=== PATIENT | female | born 1990 | race American Indian/Alaskan Native ===

== ENCOUNTER 2016-10-21 13:19 | Outpatient (CLI) | payer BC, MEDICAID ==
[2016-10-21] MEDS ORDERED: LACTATED RINGERS 500 ML IV ONE (13:29)
[2016-10-21 13:53] VITALS: BP 114/66
[2016-10-21 14:55] LABS: Bilirubin,Urine NEG (Negative); Blood,Urine NEG (Negative); Ketones,Urine NEG (Negative); Leukocyte Esterase,Urine NEG (Negative); Mucus,Urine FEW /HPF; Nitrite,Urine NEG (Negative); Protein,Urine <15 mg/dL mg/dL (Negative); Urobilinogen,Urine < 2.0 mg/dL (<2.0)
== END 2016-10-21 16:05 | disposition home or self-care (01) ==
LOC: TRG 13:19
PROVIDERS: ATTEND Obstetrics & Gynecology
DX: O47.02 False labor before 37 completed weeks of gestation, second trimester (principal); Z3A.26 26 weeks gestation of pregnancy
CPT/HCPCS: 59025; 81001; 96360; J7120

== ENCOUNTER 2016-12-04 22:20 | Outpatient (CLI) | payer MEDICAID ==
[2016-12-04 23:02] VITALS: BP 114/69
[2016-12-04] MEDS ORDERED: LACTATED RINGERS 500 ML IV ONE (23:05)
[2016-12-04 23:41] LABS: Bacteria,Urine 1+ /HPF (Negative); Bilirubin,Urine NEG (Negative); Blood,Urine NEG (Negative); Ketones,Urine NEG (Negative); Leukocyte Esterase,Urine SM (Negative); Mucus,Urine 2+ /HPF; Nitrite,Urine NEG (Negative); Protein,Urine <15 mg/dL mg/dL (Negative); Urobilinogen,Urine < 2.0 mg/dL (<2.0)
[2016-12-04] MEDS ORDERED: LACTATED RINGERS 1,000 ML ONE (23:57)
--- NOTE | 2016-12-05 08:03 | Ultrasound Report ---
ULTRASOUND BIOPHYSICAL PROFILE: History: well being Technique: Transabdominal ultrasound with Doppler interrogation. 2 - breathing movements 2 - movements 2 - posture and tone 2 - Qualitative amniotic fluid volume 8 - TOTAL SCORE OF POSSIBLE 8 Heart Rate (bpm) 145
--- NOTE | 2016-12-05 08:04 | Ultrasound Report ---
ULTRASOUND OB LIMITED History: well being Technique: Transabdominal ultrasound with Doppler interrogation. Gestation: Single Position: Cephalic Amniotic Fluid: Normal PABLO = 14.7 cm Placenta: Posterior Placental Grade: 2 Heart Rate: 143 BPM Cervical length: Obscured cm (Normal > 3 cm)
== END 2016-12-05 01:55 | disposition home or self-care (01) ==
LOC: TRG 22:20
PROVIDERS: ATTEND Obstetrics & Gynecology
DX: O26.893 Other specified pregnancy related conditions, third trimester (principal); W19.XXXA Unspecified fall, initial encounter; Y93.89 Activity, other specified; Y92.89 Other specified places as the place of occurrence of the external cause; Y99.8 Other external cause status; Z3A.34 34 weeks gestation of pregnancy
CPT/HCPCS: 59025; 76815; 76819; 81001; 96360; J7120

== ENCOUNTER 2016-12-29 22:07 | Outpatient (CLI) | payer MEDICAID ==
[2016-12-29 22:22] VITALS: BP 122/70
== END 2016-12-29 23:08 | disposition home or self-care (01) ==
LOC: TRG 22:07
PROVIDERS: ATTEND Obstetrics & Gynecology
DX: Z34.93 Encounter for supervision of normal pregnancy, unspecified, third trimester (principal); Z3A.38 38 weeks gestation of pregnancy

== ENCOUNTER 2016-12-31 17:56 | Inpatient (IN) | payer MEDICAID ==
[2016-12-31] MEDS ORDERED: MINERAL OIL PO PRN (18:18)
[2016-12-31] MEDS ORDERED: SUBLIMAZE IV PRN (18:18)
[2016-12-31] MEDS ORDERED: XYLOCAINE 2% INFILTRATI ONE (18:18)
[2016-12-31] MEDS ORDERED: BRETHINE SUB-Q PRN (18:18)
[2016-12-31] MEDS ORDERED: ePHEDrine SULFATE IV PRN (18:18)
[2016-12-31] MEDS ORDERED: BRETHINE IVP PRN (18:18)
[2016-12-31] MEDS ORDERED: POLYCILLIN/NS 2 GM/100 ML 2 GM/100 ML BAG IV ONE (18:18)
--- NOTE | 2016-12-31 18:26 | History and Physical Report ---
History of Present Illness Date of examination: 12/31/16 Date of admission: 12/31/2016 Chief complaint: Sent from office 5-6cm History of present illness: 26 y/o now 36.4 weeks in labor. Care at [facility] since 7.6 weeks. 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 Family/Genetic History: none Social history: no significant social history - Obstetrical History Expected Date of Delivery: 01/24/17 Actual Gestation: 36 Week(s) 4 Day(s) : 3 Para: 1 Induced : 1 Number of Living Children: 1 Medications and Allergies Allergies Allergy/AdvReac Type Severity Reaction Status Date / Time No Known Allergies Allergy Verified 04/05/13 22:40 Home Medications Medication Instructions Recorded Confirmed Last Taken Type Avx678/Iron Fumarate/FA/Dss 04/05/13 04/05/13 04/05/13 History [ 19 Tablet] Review of Systems All systems: negative - Vital Signs Vital signs: Vital Signs Pulse Pulse Ox 32 L 82 L 12/31/16 18:06 12/31/16 18:06 Temp Pulse Resp BP Pulse Ox 170 H 82 L 12/31/16 18:12 12/31/16 18:12 - Physical Exam Breasts: Positive: deferred, mass Lungs: Positive: Clear to auscultation Abdomen: Positive: soft Vulva: both: normal Vagina: Positive: normal moisture Uterus: Positive: enlarged Adnexa: both: normal Anus/Rectum: Positive: normal perianal skin Deep Tendon Reflex Grade: Normal +2 - Obstetrical FHR: category 1 Uterine Contraction Monitor Mode: External Cervical Dilatation: 5.5 Cervical Effacement Percentage: 90 station: 0 Uterine Contraction Pattern: Irregular Results All other labs normal. Assessment and Plan A: labor @ 36.4 weeks gestation P; Expect
[2016-12-31] MEDS ORDERED: STADOL IV PRN (18:29)
[2016-12-31] MEDS ORDERED: LACTATED RINGERS 1,000 ML IV SCH (19:00)
[2016-12-31] MEDS ORDERED: PITOCin/NS 20 UNIT/1000ML DRIP 20 UNITS/1,000 ML BAG IV SCH (19:00)
[2016-12-31] MEDS ORDERED: PITOCin/NS 30 UNIT/500ML 30 UNITS/500 ML BAG IV SCH (19:00)
[2016-12-31 19:18] LABS: Hematocrit 35.7 % (30.3-42.9); Hemoglobin 11.9 gm/dl (10.1-14.3); Mean Corpuscular HGB Conc 33 % (30-34); Mean Corpuscular Hemoglobin 28 pg (28-32); Mean Corpuscular Volume 85 fl (79-97); Platelet Count 145 K/mm3 (140-440); Red Blood Count 4.19 M/mm3 (3.65-5.03); Red Cell Distribution Width 13.9 % (13.2-15.2); White Blood Count 9.6 K/mm3 (4.5-11.0)
[2016-12-31] MEDS ORDERED: LANSINOH TP PRN (20:50)
[2016-12-31] MEDS ORDERED: TYLENOL PO PRN (20:50)
[2016-12-31] MEDS ORDERED: DULCOLAX PR PRN (20:50)
[2016-12-31] MEDS ORDERED: PHENERGAN PO PRN (20:50)
[2016-12-31] MEDS ORDERED: BENADRYL PO PRN (20:50)
--- NOTE | 2016-12-31 20:56 | Procedure Note ---
OB Delivery Note - Delivery Date of Delivery: 12/31/16 Surgeon: HANNAH HARPER Estimated blood loss: 100cc - Vaginal Delivery presentation: vertex Delivery position: OA Intrapartum events: labor-<37 weeks Delivery induction: none Delivery augmentation: rupture of membranes, pitocin Delivery monitor: external uterine, internal FHT Route of delivery: Delivery placenta: spontaneous Delivery cord: nuchal cord Episiotomy: none Delivery laceration: none Anesthesia: none Delivery comments: of a viable male 6# 14 oz @ 2028 on 12/31/2016 over intact perineum. Nuchal cord x 1 reduced. Placenta delivered 3VCI. Pitocin 10mg IM x1. FF @ U-1. Lochia small. Mother and baby doing well. - Infant A at 1 minute: 8 at 5 minutes: 9 Gender: Male (6# 14 oz)
[2016-12-31] MEDS ORDERED: SODIUM CHLORIDE FLUSH SYRINGE 10 ML IV NR (21:00)
[2016-12-31] MEDS: MOTRIN PO SCH (21:07)
[2016-12-31] MEDS ORDERED: POLYCILLIN/NS 1 GM/50 ML 1 GM/50 ML BAG IV SCH (22:20)
[2016-12-31] MEDS: NORCO 5/325 PO PRN (23:14)
[2017-01-01] MEDS: MOTRIN PO SCH ×3 (05:50→17:28)
[2017-01-01] MEDS: NORCO 5/325 PO PRN (06:02)
--- NOTE | 2017-01-01 09:18 | Progress Note ---
Assessment and Plan A; PPD #1 -stable P: Discharge home in am Subjective - Subjective Date of service: 01/01/17 Principal diagnosis: Interval history: 26 y/o now 36.4 weeks in labor. Care at [facility] since 7.6 weeks. GBS+ Patient reports: appetite normal Jones: doing well Objective - Vital Signs Latest vital signs: Vital Signs Temp Pulse Resp BP Pulse Ox 01/01/17 08:46 98.2 F 72 18 104/64 12/31/16 23:00 97.5 F L 79 18 118/73 12/31/16 21:17 92 H 100 12/31/16 21:12 89 98 12/31/16 21:07 95 H 14 98 12/31/16 21:02 92 H 98 12/31/16 20:58 88 122/67 12/31/16 20:57 87 99 12/31/16 20:52 89 98 12/31/16 20:47 86 99 12/31/16 20:28 113 H 100 12/31/16 20:27 109 H 82 L 12/31/16 20:23 101 H 97 12/31/16 20:18 101 H 98 12/31/16 20:13 101 H 99 12/31/16 20:12 103 H 144/79 12/31/16 20:08 99 H 99 12/31/16 20:03 98 H 99 12/31/16 19:58 99 H 99 12/31/16 19:53 102 H 98 12/31/16 19:48 101 H 99 12/31/16 19:43 103 H 99 12/31/16 19:38 100 H 98 12/31/16 19:33 107 H 100 12/31/16 19:28 111 H 96 12/31/16 19:23 103 H 100 12/31/16 19:18 103 H 99 12/31/16 19:13 104 H 99 12/31/16 19:08 101 H 99 12/31/16 19:03 102 H 99 12/31/16 18:58 110 H 100 12/31/16 18:53 112 H 100 12/31/16 18:52 99.1 F 108 H 20 151/106 12/31/16 18:12 170 H 82 L 12/31/16 18:11 178 H 82 L 12/31/16 18:10 202 H 82 L 07/31/17 18:09 202 H 82 L 12/31/16 18:07 79 82 L 12/31/16 18:06 32 L 82 L Intake and Output 12/31/16 01/01/17 01/01/17 22:59 06:59 14:59 Intake Total 1200 240 Balance 1200 240 Intake: IV 1200 Lactated Ringers 1,000 ml 600 @ 125 mls/hr IV DIRECT EDD Rx#:[id number] PITOCin/NS 20 UNIT/1000ML 50 DRIP 20 units In 1,000 ml @ 125 mls/hr IV DIRECT EDD Rx#:[id number] PITOCin/NS 30 UNIT/500ML 450 30 units In 500 ml @ 4 mls/hr IV TITR EDD Rx#: [id number] POLYCILLIN/NS 2 GM/100 ML 100 2 gm In 100 ml @ 100 mls /hr IV ONCE ONE Rx#: [id number] Oral 240 Other: Total, Intake Amount 240 # Voids Void 1 Weight 280 lb Estimated Blood Loss 100 - Exam Breasts: Present: deferred Cardiovascular: Present: Regular rate Lungs: Present: Clear to auscultation Abdomen: Present: soft Vulva: both: normal Uterus: Present: fundal height below umbilicus Extremities: Present: normal Deep Tendon Reflex Grade: Normal +2
--- NOTE | 2017-01-01 09:19 | Discharge Summary ---
Providers - Providers Date of Admission: 12/31/16 18:49 Date of discharge: 01/01/17 Attending physician: AARTI ROMAN MD Primary care physician: AARTI ROMAN MD Hospitalization Reason for admission: active labor Delivery: Episiotomy: none Laceration: none Incision: normal Other procedures: none complications: none Discharge diagnosis: delivery [place] baby: male Condition at discharge: Good Disposition: DC-01 TO HOME OR SELFCARE Plan - Provider Discharge Summary Activity: routine, no sex for 6 weeks, no strenuous exercise Diet: routine Instructions: routine Additional instructions: [] Smoking cessation referral if applicable(refer to patient education folder for contact #) [] Refer to [facility]'s [facility] Booklet Call your doctor immediately for: * Fever > 100.5 * Heavy vaginal bleeding ( >1 pad per hour) * Severe persistent headache * Shortness of breath * Reddened, hot, painful area to leg or breast * Drainage or odor from incision. * Keep incision clean and dry at all times and follow doctor's instructions regarding bathing/showering - Follow up plan Follow up: [facility] [Provider Group] - 6 Weeks
[2017-01-01 10:43] LABS: Hematocrit 32.1 % (30.3-42.9); Hemoglobin 10.8 gm/dl (10.1-14.3)
[2017-01-02] MEDS: MOTRIN PO SCH ×4 (01:20→17:03)
[2017-01-02] MEDS: NORCO 5/325 PO PRN (01:20)
[2017-01-02 17:42] VITALS: BP 113/67
== END 2017-01-02 22:15 | disposition home or self-care (01) | DRG 775 ==
LOC: TRG 17:56 → LD 18:49 → OB 22:57
PROVIDERS: ADMIT Obstetrics & Gynecology; ATTEND Obstetrics & Gynecology
PROC: 10E0XZZ Delivery of Products of Conception, External Approach (ICD-10-PCS; principal; 2016-12-31)
DX: O60.14X0 Preterm labor third trimester with preterm delivery third trimester, not applicable or unspecified (principal); O69.81X0 Labor and delivery complicated by cord around neck, without compression, not applicable or unspecified; O99.824 Streptococcus B carrier state complicating childbirth; Z3A.36 36 weeks gestation of pregnancy; Z37.0 Single live birth
CPT/HCPCS: 36415; 85014; 85018; 85027; 86592; 86850; 86900; 86901; J0290; J2590; J7120

== ENCOUNTER 2018-02-26 23:20 | Outpatient (CLI) | payer MEDICAID ==
[2018-02-27 01:43] VITALS: BP 120/64
[2018-02-27 02:47] LABS: Bilirubin,Urine NEG (Negative); Blood,Urine LG (Negative); Calcium Oxalate Crystals,Urine 1+; Color,Urine Amber (Yellow); Mucus,Urine 3+ /HPF; Urobilinogen,Urine < 2.0 mg/dL (<2.0)
[2018-02-27 02:48] LABS: RBC,Urine > 182.0 /HPF (0.0-6.0)
[2018-02-27 04:02] LABS: Hematocrit 34.3 % (30.3-42.9); Hemoglobin 11.5 gm/dl (10.1-14.3); Mean Corpuscular HGB Conc 34 % (30-34); Mean Corpuscular Hemoglobin 30 pg (28-32); Mean Corpuscular Volume 88 fl (79-97); Platelet Count 185 K/mm3 (140-440); Red Cell Distribution Width 13.4 % (13.2-15.2)
[2018-02-27] MEDS ORDERED: ceFAZolin 2 GM in NACL 0.9% 100 ML IV ONE (04:17)
[2018-02-27] MEDS ORDERED: LACTATED RINGERS 1,000 ML IV ONE (04:18)
[2018-02-27] MEDS ORDERED: ANCEF/STERILE WATER 2 GM/20 ML 2 GM/20 ML SYRINGE IV ONE (05:00)
== END 2018-02-27 06:20 | disposition home or self-care (01) ==
LOC: TRG 23:20
PROVIDERS: ATTEND Obstetrics & Gynecology
DX: O26.892 Other specified pregnancy related conditions, second trimester (principal); R10.11 Right upper quadrant pain; Z3A.22 22 weeks gestation of pregnancy
CPT/HCPCS: 36415; 81001; 85027; 96360; J0690; J7120

== ENCOUNTER 2018-05-29 15:11 | Outpatient (CLI) | payer MEDICAID ==
[2018-05-29 16:29] VITALS: BP 110/57
[2018-05-29 16:55] LABS: Bacteria,Urine 1+ /HPF (Negative); Bilirubin,Urine NEG (Negative); Blood,Urine NEG (Negative); Color,Urine Yellow (Yellow); Mucus,Urine FEW /HPF; Protein,Urine <15 mg/dL mg/dL (Negative)
== END 2018-05-29 17:34 | disposition home or self-care (01) ==
LOC: TRG 15:11
PROVIDERS: ATTEND Obstetrics & Gynecology
DX: O47.03 False labor before 37 completed weeks of gestation, third trimester (principal); Z3A.35 35 weeks gestation of pregnancy
CPT/HCPCS: 59025; 81001

== ENCOUNTER 2018-06-04 12:12 | Inpatient (IN) | payer MEDICAID ==
[2018-06-04] MEDS ORDERED: LACTATED RINGERS 1,000 ML IV SCH ×2 (13:00→15:00)
[2018-06-04] MEDS ORDERED: AMPICILLIN/NS 2 GM/100 ML 2 GM/100 ML BAG IV ONE (13:00)
[2018-06-04 13:28] LABS: Basophils % (Auto) 0.4 % (0.0-1.8); Eosinophils % (Auto) 0.3 % (0.0-4.3); Lymphocytes # (Auto) 2.1 K/mm3 (1.2-5.4); Lymphocytes % (Auto) 25.5 % (13.4-35.0); Monocytes # (Auto) 0.8 K/mm3 (0.0-0.8); Monocytes % (Auto) 9.3 % (0.0-7.3)
[2018-06-04 13:38] LABS: Hematocrit 35.7 % (30.3-42.9); Mean Corpuscular HGB Conc 34 % (30-34); Mean Corpuscular Volume 84 fl (79-97); Platelet Count 183 K/mm3 (140-440); Red Blood Count 4.23 M/mm3 (3.65-5.03); Red Cell Distribution Width 13.5 % (13.2-15.2)
--- NOTE | 2018-06-04 14:48 | History and Physical Report ---
History of Present Illness Date of examination: 06/04/18 Date of admission: 06/04/18 12:12 Chief complaint: Advanced Cervical Dilatation History of present illness: care at [facility]; co-caroline with [facility] due to maternal obesity. course complicated by Vitamin D Deficiency, and a UTI (GBS). 3rd trimester complicated by labor concerns. 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, trichomonas Family/Genetic History: diabetes Social history: no significant social history, - Obstetrical History Expected Date of Delivery: 07/03/18 Actual Gestation: 35 Week(s) 6 Day(s) : 3 Para: 2 Hx # Term Pregnancies: 1 Number of Pregnancies: 1 Number of Living Children: 2 #1 Birthweight: 2.92 kg Method of Delivery: Vaginal Gestational age at delivery: 36 Complications: none #2 Infant Gender: Male year: Birthweight: 3.629 kg Method of Delivery: Vaginal Complications: none Medications and Allergies Allergies Allergy/AdvReac Type Severity Reaction Status Date / Time No Known Allergies Allergy Verified 04/05/13 22:40 Home Medications Medication Instructions Recorded Confirmed Last Taken Type Vit Calc,Iron,Folic 1 each PO DAILY #30 tablet 06/10/16 05/29/18 05/27/18 Rx [ Vitamins] Active Meds: Active Medications Lactated Ringer's (Lactated Ringers) 1,000 mls @ 125 mls/hr IV DIRECT EDD Last Admin: 06/04/18 13:27 Dose: 125 mls/hr Documented by: Review of Systems All systems: negative - Vital Signs Vital signs: Vital Signs Pulse BP Pulse Ox 111 H 109/61 99 06/04/18 12:55 06/04/18 12:55 06/04/18 12:55 Temp Pulse Resp BP Pulse Ox 96.9 F L 101 H 16 109/61 100 06/04/18 13:01 06/04/18 14:39 06/04/18 13:01 06/04/18 13:01 06/04/18 14:39 - Physical Exam Breasts: Positive: normal Cardiovascular: Regular rate Lungs: Positive: Clear to auscultation, Normal air movement Abdomen: Positive: normal appearance, soft, normal bowel sounds Genitourinary (Female): Positive: normal external genitalia, normal perenium Vagina: Positive: normal moisture Uterus: Positive: enlarged Anus/Rectum: Positive: normal perianal skin - Obstetrical FHR: category 1 Uterine Contraction Monitor Mode: External Cervical Dilatation: 6 (Moderate amount of clear fluid upon AROM at 1437) Cervical Effacement Percentage: 70 station: -1 Uterine Contraction Frequency (min): 2 Uterine Contraction Pattern: Regular Uterine Tone Measurement Phase: Resting Uterine Contraction Intensity: Mild Results Result Diagrams: 06/04/18 13:00 Abnormal lab results 06/04/18 Range/Units 13:00 [place] % (Auto) 9.3 H (0.0-7.3) % All other labs normal. Assessment and Plan A: IUP @ 35 6/7 Weeks Active Labor Category I Tracing GBS Positive P: Admit to L&D per Routine Orders GBS Prophylaxis AROM Pitocin Augmentation
[2018-06-04] MEDS ORDERED: XYLOCAINE 2% INFILTRATI NR (15:00)
[2018-06-04] MEDS ORDERED: BRETHINE SUB-Q PRN (15:00)
[2018-06-04] MEDS ORDERED: NARCAN 0.4 MG/1 ML IV PRN (15:00)
[2018-06-04] MEDS ORDERED: MINERAL OIL PO PRN (15:00)
[2018-06-04] MEDS ORDERED: PITOCin/NS 20 UNIT/1000ML DRIP 20 UNITS/1,000 ML BAG IV SCH (15:00)
[2018-06-04] MEDS ORDERED: ZOFRAN IV PRN (15:00)
[2018-06-04] MEDS ORDERED: BRETHINE IVP PRN (15:00)
[2018-06-04] MEDS ORDERED: PITOCin/NS 30 UNIT/500ML 30 UNITS/500 ML BAG IV SCH ×2 (15:00)
[2018-06-04] MEDS ORDERED: STADOL IV PRN (15:00)
[2018-06-04] MEDS ORDERED: SUBLIMAZE IV PRN (15:00)
[2018-06-04] MEDS ORDERED: BENADRYL PO PRN (16:25)
[2018-06-04] MEDS ORDERED: MILK OF MAGNESIA PO PRN (16:25)
--- NOTE | 2018-06-04 16:33 | Procedure Note ---
OB Delivery Note - Delivery Date of Delivery: 06/04/18 (1602) Surgeon: SID LAW Estimated blood loss: other (250) - Vaginal Delivery presentation: vertex Delivery position: OA Intrapartum events: labor-<37 weeks, mult.variable deceleratio Delivery induction: none Delivery augmentation: rupture of membranes, pitocin Delivery monitor: external FHT, external uterine Route of delivery: Delivery placenta: spontaneous Delivery cord: nuchal cord, 3 umbilical vessels Episiotomy: none Delivery laceration: 1st degree Delivery repair: vicryl Anesthesia: local Delivery comments: of a live 5'15 female over a 1st degree periurethral laceration without pain control with Apgars of 8 and 9 at 1602 on 06/04/2018. Very tight nuchal cord x 1 double clamped and cut on the perineum prior to delivery of the anterior shoulder. NICU/RESP team at delivery due to delivery. Spont aneous delivery of the placenta complete and intact with [place] side presenting at 1605. Fundus is firm and midline located 4 below the U. Lochia is scant. Periurethral laceration repaired with 2-0 Vicryl on a SH under local 2% Lidocaine. Placenta to pathology. GBS prophylaxis x 1. - A at 1 minute: 8 at 5 minutes: 9 Gender: Female (5'15)
[2018-06-04] MEDS ORDERED: SODIUM CHLORIDE FLUSH SYRINGE 10 ML IV SCH (17:00)
[2018-06-04] MEDS: IBUPROFEN PO SCH ×2 (18:10→23:08)
[2018-06-04] MEDS: NORCO 5/325 PO PRN (19:47)
[2018-06-04] MEDS: FEOSOL PO SCH (21:12)
[2018-06-04] MEDS ORDERED: DERMOPLAST TP PRN (23:55)
[2018-06-04] MEDS ORDERED: TUCKS PAD TP PRN (23:56)
[2018-06-05] MEDS: IBUPROFEN PO SCH ×3 (05:33→19:28)
[2018-06-05 06:37] LABS: Hematocrit 32.7 % (30.3-42.9); Hemoglobin 10.8 gm/dl (10.1-14.3)
--- NOTE | 2018-06-05 10:11 | Progress Note ---
Assessment and Plan A: PP Day #1 Stable P: Follow Routine Orders Plans Nexplanon for PP Contraception D/C Home in the AM RTO in 6 weeks Subjective - Subjective Date of service: 06/05/18 Interval history: care at [facility]; co-caroline with [facility] due to maternal obesity. course complicated by Vitamin D Deficiency, and a UTI (GBS). 3rd trimester complicated by labor concerns. Patient reports: appetite normal, voiding normally, pain well controlled, flatus, ambulating normally [place]: doing well, bottle feeding Objective - Vital Signs Latest vital signs: Vital Signs Temp Pulse Resp BP BP Pulse Ox 06/05/18 07:20 97.6 F 69 20 113/70 96 06/05/18 05:12 97.8 F 74 18 108/62 99 06/05/18 01:04 97.7 F 74 18 110/56 98 06/04/18 19:47 18 06/04/18 18:10 20 06/04/18 18:00 98.5 F 85 20 112/49 98 06/04/18 17:28 86 106/51 06/04/18 17:13 90 120/57 06/04/18 16:43 173 H 125/82 06/04/18 16:28 97 H 130/74 06/04/18 15:29 101 H 98 06/04/18 15:28 112 H 93 06/04/18 15:24 99 H 100 06/04/18 15:19 108 H 100 06/04/18 15:14 105 H 100 06/04/18 15:09 108 H 100 06/04/18 15:04 98 H 100 06/04/18 14:59 91 H 100 06/04/18 14:54 99 H 100 06/04/18 14:49 99 H 100 06/04/18 14:44 100 H 100 06/04/18 14:39 101 H 100 06/04/18 14:37 107 H 94 06/04/18 14:34 104 H 97 06/04/18 14:31 98 H 94 06/04/18 14:29 95 H 96 06/04/18 14:24 95 H 97 06/04/18 14:21 65 80 L 06/04/18 14:19 103 H 97 06/04/18 14:14 107 H 96 06/04/18 14:09 101 H 96 06/04/18 14:08 98 H 94 06/04/18 14:04 100 H 97 06/04/18 13:59 96 H 95 06/04/18 13:55 98 H 94 06/04/18 13:54 93 H 96 06/04/18 13:49 99 H 97 06/04/18 13:44 98 H 99 06/04/18 13:39 107 H 98 06/04/18 13:34 102 H 98 06/04/18 13:29 103 H 96 06/04/18 13:24 103 H 96 06/04/18 13:19 101 H 97 06/04/18 13:14 103 H 99 06/04/18 13:09 107 H 97 06/04/18 13:04 107 H 99 06/04/18 13:01 96.9 F L 102 H 16 109/61 06/04/18 12:55 111 H 109/61 99 Intake and Output 06/04/18 06/05/18 06/05/18 22:59 06:59 14:59 Intake Total 240 Output Total 800 Balance -560 Intake: Intake, Free Water 240 Output: Urine 800 Void 800 Other: Total, Output Amount 800 # Voids Void 1 Estimated Blood Loss 250 - Exam Breasts: Present: normal Cardiovascular: Present: Regular rate Lungs: Present: Clear to auscultation, Normal air movement Abdomen: Present: normal appearance, soft, normal bowel sounds Uterus: Present: normal, firm, fundal height below umbilicus Extremities: Present: normal - Labs Labs: Abnormal lab results 06/04/18 Range/Units 13:00 Early % (Auto) 9.3 H (0.0-7.3) %
--- NOTE | 2018-06-05 10:13 | Discharge Summary ---
Providers - Providers Date of Admission: 06/04/18 12:12 Date of discharge: 06/06/18 Attending physician: YANCI COLIN MD Primary care physician: JAVIER GILLESPIE Hospitalization Reason for admission: active labor Delivery: Episiotomy: none Laceration: 1st degree Other procedures: none complications: none Discharge diagnosis: delivery baby: female Condition at discharge: Good Disposition: DC-01 TO HOME OR SELFCARE Plan - Provider Discharge Summary Activity: routine, no sex for 6 weeks, no heavy lifting 4 weeks, no strenuous exercise Diet: routine Instructions: routine Additional instructions: [] Smoking cessation referral if applicable(refer to patient education folder for contact #) [] Refer to [facility] Booklet Call your doctor immediately for: * Fever > 100.5 * Heavy vaginal bleeding ( >1 pad per hour) * Severe persistent headache * Shortness of breath * Reddened, hot, painful area to leg or breast * Drainage or odor from incision. * Keep incision clean and dry at all times and follow doctor's instructions regarding bathing/showering - Follow up plan Follow up: JAVIER GILLESPIE [Primary Care Provider] - 6 Weeks
[2018-06-05] MEDS: FEOSOL PO SCH ×2 (10:34→21:24)
[2018-06-05] MEDS: PRENATAL VITAMIN PO SCH (10:34)
[2018-06-05] MEDS: NORCO 5/325 PO PRN ×2 (13:58→19:29)
[2018-06-06] MEDS: IBUPROFEN PO SCH ×2 (01:09→13:07)
[2018-06-06] MEDS: NORCO 5/325 PO PRN (01:10)
[2018-06-06 09:13] VITALS: BP 108/55
[2018-06-06] MEDS: FEOSOL PO SCH (10:53)
[2018-06-06] MEDS: PRENATAL VITAMIN PO SCH (10:53)
== END 2018-06-06 18:53 | disposition home or self-care (01) | DRG 775 ==
LOC: LD 12:12 → OB 18:04
PROVIDERS: ADMIT Obstetrics & Gynecology; ATTEND Obstetrics & Gynecology
PROC: 10E0XZZ Delivery of Products of Conception, External Approach (ICD-10-PCS; principal; 2018-06-04)
PROC: 10907ZC Drainage of Amniotic Fluid, Therapeutic from Products of Conception, Via Natural or Artificial Opening (ICD-10-PCS; 2018-06-04)
PROC: 0HQ9XZZ Repair Perineum Skin, External Approach (ICD-10-PCS; 2018-06-04)
DX: O60.14X0 Preterm labor third trimester with preterm delivery third trimester, not applicable or unspecified (principal); O99.824 Streptococcus B carrier state complicating childbirth; Z3A.35 35 weeks gestation of pregnancy; Z37.0 Single live birth; Z83.3 Family history of diabetes mellitus; O76 Abnormality in fetal heart rate and rhythm complicating labor and delivery; O69.81X0 Labor and delivery complicated by cord around neck, without compression, not applicable or unspecified; O70.0 First degree perineal laceration during delivery
CPT/HCPCS: 36415; 85014; 85018; 85025; 86850; 86900; 86901; 88307; G0378; J0290; J2590; J3010; J7120

== ENCOUNTER 2020-05-02 17:31 | Outpatient (CLI) | payer MEDICAID ==
[2020-05-02 18:10] VITALS: BP 120/68
[2020-05-02] MEDS ORDERED: LACTATED RINGERS 1,000 ML IV SCH (18:30)
[2020-05-02] MEDS ORDERED: TERBUTALINE 1 MG/1 ML INJ SUB-Q SCH (19:00)
[2020-05-02] MEDS ORDERED: BETAMET ACET/BETAMET NA PH 6 MG/ML INJ 5 ML MDV IM ONE (20:00)
== END 2020-05-02 20:38 | disposition home or self-care (01) ==
LOC: TRG 17:31 → APU 17:33 → TRG 20:38
PROVIDERS: ATTEND Obstetrics & Gynecology
DX: O62.9 Abnormality of forces of labor, unspecified (principal); Z3A.32 32 weeks gestation of pregnancy
CPT/HCPCS: 59025; 96372; J0702; J3105

== ENCOUNTER 2020-05-03 18:43 | Outpatient (CLI) | payer MEDICAID ==
[2020-05-03] MEDS ORDERED: BETAMET ACET/BETAMET NA PH 6 MG/ML INJ 5 ML MDV IM ONE (19:16)
[2020-05-03 19:34] VITALS: BP 117/75
== END 2020-05-03 20:00 | disposition home or self-care (01) ==
LOC: TRG 18:43 → APU 18:46 → TRG 20:00
PROVIDERS: ATTEND Obstetrics & Gynecology
DX: O47.03 False labor before 37 completed weeks of gestation, third trimester (principal); Z3A.32 32 weeks gestation of pregnancy
CPT/HCPCS: 96372; J0702

== ENCOUNTER 2020-05-23 12:13 | Outpatient (CLI) | payer MEDICAID ==
[2020-05-23 12:57] VITALS: BP 121/59
--- NOTE | 2020-05-23 15:50 | Ultrasound Report ---
ULTRASOUND OBSTETRIC LIMITED ULTRASOUND BIOPHYSICAL PROFILE INDICATION / CLINICAL INFORMATION: pt c/o leaking. COMPARISON: None available. FINDINGS: BREATHING MOVEMENT = 2 GROSS BODY MOVEMENT = 2 TONE = 2 QUALITATIVE AMNIOTIC FLUID VOLUME = 2 TOTAL BIOPHYSICAL SCORE = 8/8 HEART RATE (beats per minute): 141 AMNIOTIC FLUID INDEX (cm) = 9.7 (normal = 7-24 cm) PRESENTATION: Cephalic. ADDITIONAL FINDINGS: None. IMPRESSION: 1. Biophysical Score = 8/8 2. Normal amniotic fluid index. Signer Name: Melquiades Fermin MD Signed: 05/23/2020 3:46 PM Workstation Name: [id number]
== END 2020-05-23 17:06 | disposition home or self-care (01) ==
LOC: TRG 12:13 → APU 12:14 → TRG 17:06
PROVIDERS: ATTEND Obstetrics & Gynecology
DX: O42.913 Preterm premature rupture of membranes, unspecified as to length of time between rupture and onset of labor, third trimester (principal); Z3A.35 35 weeks gestation of pregnancy
CPT/HCPCS: 59025; 76815; 76819

== ENCOUNTER 2020-08-10 10:40 | Outpatient (CLI) | payer MEDICAID ==
--- NOTE | 2020-08-10 13:14 | XRay Report ---
AP LATERAL OBLIQUE VIEWS OF BOTH FEET INDICATION: BILATERAL FOOT PAIN. COMPARISON: No relevant prior imaging study available. FINDINGS: No acute skeletal abnormality. No significant degenerative changes. No soft tissue swelling is identi fied. IMPRESSION: 1. No acute findings. Signer Name: Yair Hale MD Signed: 08/10/2020 1:10 PM Workstation Name: [id number]
== END 2020-08-10 10:41 | disposition home or self-care (01) ==
LOC: XRAY 10:40
PROVIDERS: ATTEND Podiatrist
DX: M79.671 Pain in right foot (principal); M79.672 Pain in left foot

== ENCOUNTER 2020-11-05 21:55 | Emergency (ER) | payer MEDICAID ==
[2020-11-05] MEDS ORDERED: ACETAMINOPHEN 325 MG TAB PO ONE (22:08)
[2020-11-05 22:40] LABS: Basophils % (Auto) 0.3 % (0.0-1.8); Hematocrit 40.3 % (30.3-42.9); Hemoglobin 13.5 gm/dl (10.1-14.3); Lymphocytes # (Auto) 1.3 K/mm3 (1.2-5.4); Lymphocytes % (Auto) 32.8 % (13.4-35.0); Mean Corpuscular HGB Conc 34 % (30-34); Mean Corpuscular Volume 85 fl (79-97); Monocytes # (Auto) 0.3 K/mm3 (0.0-0.8); Monocytes % (Auto) 7.8 % (0.0-7.3); Platelet Count 161 K/mm3 (140-440); Red Blood Count 4.77 M/mm3 (3.65-5.03); Red Cell Distribution Width 13.5 % (13.2-15.2)
[2020-11-05 23:00] LABS: Blood Urea Nitrogen 8 mg/dL (7-17); Calcium 8.4 mg/dL (8.4-10.2); Hemolysis Index 13
[2020-11-05 23:07] LABS: BUN/Creatinine Ratio 11
[2020-11-06 00:41] LABS: HCG Qualitative,Urine Negative (Negative)
[2020-11-06 00:46] LABS: Bacteria,Urine 1+ /HPF (Negative); Bilirubin,Urine NEG (Negative); Blood,Urine LG (Negative); Color,Urine Yellow (Yellow); Mucus,Urine FEW /HPF
--- NOTE | 2020-11-06 01:09 | XRay Report ---
CHEST 2 VIEWS INDICATION / CLINICAL INFORMATION: SOB. COMPARISON: None available. FINDINGS: SUPPORT DEVICES: None. HEART / MEDIASTINUM: No significant abnormality. LUNGS / PLEURA: There are pulmonary opacities throughout both lower lobes without consolidation or pl eural effusion. Upper lung gutierrez are grossly clear. No pneumothorax. ADDITIONAL FINDINGS: No significant additional findings. IMPRESSION: 1. Bilateral lower lobe interstitial pulmonary opacities, nonspecific. Appearance could be due to vir al pneumonia and clinical correlation is recommended. Signer Name: Shameka White MD Signed: 11/06/2020 1:05 AM Workstation Name: [id number]
--- NOTE | 2020-11-06 01:24 | Emergency Department Report ---
- General Chief Complaint: Dyspnea/Respdistress Stated Complaint: MONTEZ Time Seen by Provider: 11/05/20 23:57 Source: patient Mode of arrival: Ambulatory Limitations: No Limitations - History of Present Illness Initial Comments: Patient is a 30-year-old female presents emergency room with complaints of URI symptoms that began a week ago. She states initially began with sore throat, ear pain, congestion. She states that she then began having fever, chills, chest tightness, shortness of breath, chest congestion. She denies any nausea, vomiting, diarrhea, abdominal pain. 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 She has not been vaccinated for COVID-19. No past medical history. No allergies medications. - Related Data Previous Rx's Medication Instructions Recorded Last Taken Type Vit Calc,Iron,Folic 1 each PO DAILY #30 tablet 06/10/16 05/13/20 10:00 Rx [ Vitamins] Albuterol Sulfate [Proventil Hfa] 1 puff IH TID PRN #1 hfa.aer.ad 11/06/20 Unknown Rx Azithromycin [Zithromax TAB] 250 mg PO QDAY 5 Days #6 tablet 11/06/20 Unknown Rx Dexamethasone 6 mg PO DAILY #10 tab 11/06/20 Unknown Rx cephALEXin [Keflex] 500 mg PO BID 7 Days #14 capsule 11/06/20 Unknown Rx Allergies Allergy/AdvReac Type Severity Reaction Status Date / Time No Known Allergies Allergy Verified 04/05/13 22:40 ED Review of Systems ROS: Stated complaint: MONTEZ Other details as noted in HPI Comment: All other systems reviewed and negative ED Past Medical Hx - Past Medical History Previous Medical History?: No Hx Hypertension: No Hx Congestive Heart Failure: No Hx Diabetes: No Hx Deep Vein Thrombosis: No Hx Renal Disease: No Hx Sickle Cell Disease: No Hx Seizures: No Hx Asthma: No Hx COPD: No Hx HIV: No Additional medical history: Vaginal delivery 04-06-2013 - Surgical History Past Surgical History?: No - Social History Smoking Status: Never Smoker - Medications Home Medications: Home Medications Medication Instructions Recorded Confirmed Last Taken Type Vit Calc,Iron,Folic 1 each PO DAILY #30 tablet 06/10/16 05/27/20 05/13/20 10:00 Rx [ Vitamins] Albuterol Sulfate [Proventil Hfa] 1 puff IH TID PRN #1 hfa.aer.ad 11/06/20 Unknown Rx Azithromycin [Zithromax TAB] 250 mg PO QDAY 5 Days #6 tablet 11/06/20 Unknown Rx Dexamethasone 6 mg PO DAILY #10 tab 11/06/20 Unknown Rx cephALEXin [Keflex] 500 mg PO BID 7 Days #14 capsule 11/06/20 Unknown Rx ED Physical Exam - General Limitations: No Limitations General appearance: alert, in no apparent distress - Head Head exam: Present: atraumatic, normocephalic - Eye Eye exam: Present: normal appearance - ENT ENT exam: Present: mucous membranes moist - Respiratory Respiratory exam: Present: normal lung sounds bilaterally. Absent: respiratory distress, wheezes, rales, rhonchi, stridor, chest wall tenderness, accessory muscle use, decreased breath sounds, prolonged expiratory - Cardiovascular Cardiovascular Exam: Present: regular rate, normal rhythm, normal heart sounds. Absent: systolic murmur, diastolic murmur, rubs, gallop - Neurological Exam Neurological exam: Present: alert, oriented X3 - Psychiatric Psychiatric exam: Present: normal affect, normal mood - Skin Skin exam: Present: warm, dry, intact ED Course Vital Signs 11/05/20 11/06/20 11/06/20 22:04 02:28 03:11 Temperature 101.8 F H 100.1 F H Pulse Rate 122 H 105 H Respiratory 16 20 20 Rate Blood Pressure 117/72 Blood Pressure 110/55 [Right] O2 Sat by Pulse 94 98 98 Oximetry ED Medical Decision Making - Lab Data Result diagrams: 11/05/20 22:14 11/05/20 22:14 Lab Results 11/05/20 11/05/20 11/05/20 Range/Units 22:14 22:14 Unknown WBC 4.0 L (4.5-11.0) K/mm3 RBC 4.77 (3.65-5.03) M/mm3 Hgb 13.5 (10.1-14.3) gm/dl Hct 40.3 (30.3-42.9) % MCV 85 (79-97) fl MCH 28 (28-32) pg MCHC 34 (30-34) % RDW 13.5 (13.2-15.2) % Plt Count 161 (140-440) K/mm3 Lymph % (Auto) 32.8 (13.4-35.0) % [place] % (Auto) 7.8 H (0.0-7.3) % Eos % (Auto) 0.0 (0.0-4.3) % Baso % (Auto) 0.3 (0.0-1.8) % Lymph # (Auto) 1.3 (1.2-5.4) K/mm3 [place] # (Auto) 0.3 (0.0-0.8) K/mm3 Eos # (Auto) 0.0 (0.0-0.4) K/mm3 Baso # (Auto) 0.0 (0.0-0.1) K/mm3 Seg Neutrophils % 59.1 (40.0-70.0) % Seg Neutrophils # 2.3 (1.8-7.7) K/mm3 Sodium 137 (137-145) mmol/L Potassium 4.4 (3.6-5.0) mmol/L Chloride 100.3 (98-107) mmol/L Carbon Dioxide 26 (22-30) mmol/L Anion Gap 15 mmol/L BUN 8 (7-17) mg/dL Creatinine 0.7 (0.6-1.2) mg/dL Estimated GFR > 60 ml/min BUN/Creatinine Ratio 11 % Glucose 91 (65-100) mg/dL Calcium 8.4 (8.4-10.2) mg/dL Urine Color Yellow (Yellow) Urine Turbidity Slightly-cloudy (Clear) Urine pH 6.0 (5.0-7.0) Ur Specific [place] 1.026 (1.003-1.030) Urine Protein 30 mg/dl (Negative) mg/dL Urine Glucose (UA) Neg (Negative) mg/dL Urine Ketones Tr (Negative) mg/dL Urine Blood Lg (Negative) Urine Nitrite Neg (Negative) Ur Reducing Substances Not Reportable Urine Bilirubin Neg (Negative) Urine Ictotest Not Reportable Urine Urobilinogen 2.0 (<2.0) mg/dL Ur Leukocyte Esterase Mod (Negative) Urine WBC (Auto) 23.0 H (0.0-6.0) /HPF Urine RBC (Auto) 162.0 (0.0-6.0) /HPF U Epithel Cells (Auto) 16.0 H (0-13.0) /HPF Urine Bacteria (Auto) 1+ (Negative) /HPF Urine Mucus Few /HPF Urine Yeast (Budding) Few /HPF Urine HCG, Qual Negative (Negative) Vital Signs 11/05/20 11/06/20 11/06/20 22:04 02:28 03:11 Temperature 101.8 F H 100.1 F H Pulse Rate 122 H 105 H Respiratory 16 20 20 Rate Blood Pressure 117/72 Blood Pressure 110/55 [Right] O2 Sat by Pulse 94 98 98 Oximetry - Radiology Data Radiology results: report reviewed Ordering Physician: SLY WEINBERG MD Date of Service: 11/05/20 Procedure(s): XR chest routine 2V Accession Number(s): [id number] cc: SLY WEINBERG MD Fluoro Time In Minutes: CHEST 2 VIEWS INDICATION / CLINICAL INFORMATION: SOB. COMPARISON: None available. FINDINGS: SUPPORT DEVICES: None. HEART / MEDIASTINUM: No significant abnormality. LUNGS / PLEURA: There are pulmonary opacities throughout both lower lobes without consolidation or pleural effusion. Upper lung gutierrez are grossly clear. No pneumothorax. ADDITIONAL FINDINGS: No significant additional findings. IMPRESSION: 1. Bilateral lower lobe interstitial pulmonary opacities, nonspecific. Appearance could be due to viral pneumonia and clinical correlation is recommended. Signer Name: Shameka White MD Signed: 11/06/2020 1:05 AM Workstation Name: [id number] Transcribed By: JR Dictated By: Shameka White MD Electronically Authenticated By: Shameka White MD Signed Date/Time: 11/06/20104 DD/ 2 TD/TT: - Medical Decision Making Patient is a 30-year-old female presents emergency room with complaints of URI symptoms that began a week ago. She states initially began with sore throat, ear pain, congestion. She states that she then began having fever, chills, chest tightness, shortness of breath, chest congestion. She denies any nausea, vomiting, diarrhea, abdominal pain. 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 She has not been vaccinated for COVID-19. No past medical history. No allergies medications. Initial vitals with fever and tachycardia which improved upon repeat. On exam breath sounds are clear bilaterally, no wheezing, no rales, no rhonchi. Labs are stable. UA shows evidence of red blood cells, white blood cells, epithelial cells, could be due to contamination, will cover patient with Keflex for UTI. Chest x-ray: 1. Bilateral lower lobe interstitial pulmonary opacities, nonspecific. Appearance could be due to viral pneumonia and clinical correlation is recommended. This is most likely representing a COVID-19 pneumonia. Patient has no hypoxia, she was ambulated in the emergency department and able to maintain sats of 95% or greater on room air. Patient given prescription for medications. Discussed return precautions with patient. Advised patient Please take medication as prescribed. Please increase your fluid intake over the next several days. May take Tylenol as needed for fever or body aches. Follow-up with a primary care doctor for reexamination. Return to emergency room immediately for any new or worsening s ymptoms including but not limited to difficulty breathing, shortness of breath, severe chest pain, unable to tolerate by mouth intake, etc. Please self quarantine for 10 days from the onset of your symptoms. Please do not go out in public. If you are around others at home please wear a mask. If you need to cough or sneeze please do so in a napkin and immediately throw it away and immediately wash your hands. Wash your hands frequently. Wipe everything down. Recommend for you to get COVID-19 testing, may have this done at primary care doctor, health department, [facility], etc. Critical care attestation.: If time is entered above; I have spent that time in minutes in the direct care of this critically ill patient, excluding procedure time. ED Disposition Clinical Impression: Opacities of both lungs present on chest x-ray, Suspected COVID-19 virus infection UTI (urinary tract infection) Qualifiers: Urinary tract infection type: acute cystitis Hematuria presence: with hematuria Qualified Code(s): N30.01 - Acute cystitis with hematuria Disposition: TO HOME OR SELFCARE Is pt being admited?: No Does the pt Need Aspirin: No Condition: Stable Instructions: COVID-19, Urinary Tract Infection, Adult, Community-Acquired Pneumonia, Adult, [id number] Additional Instructions: Please take medication as prescribed. Please increase your fluid intake over the next several days. May take Tylenol as needed for fever or body aches. Follow-up with a primary care doctor for reexamination. Return to emergency room immediately for any new or worsening symptoms including but not limited to difficulty breathing, shortness of breath, severe chest pain, unable to tolerate by mouth intake, etc. Please self quarantine for 10 days from the onset of your symptoms. Please do not go out in public. If you are around others at home please wear a mask. If you need to cough or sneeze please do so in a napkin and immediately throw it away and immediately wash your hands. Wash your hands frequently. Wipe everything down. Recommend for you to get COVID-19 testing, may have this done at primary care doctor, health department, [facility], etc. Prescriptions: Dexamethasone 6 mg PO DAILY #10 tab cephALEXin [Keflex] 500 mg PO BID 7 Days #14 capsule Albuterol Sulfate [Proventil Hfa] 1 puff IH TID PRN #1 hfa.aer.ad PRN Reason: shortness of breath/wheezing Azithromycin [Zithromax TAB] 250 mg PO QDAY 5 Days #6 tablet Referrals: PRIMARY CARE, [Primary Care Provider] - 2-3 Days Time of Disposition: 01:24 Print Language: ROMANSH
[2020-11-06] MEDS ORDERED: ONDANSETRON 4 MG ODT TAB PO ONE (03:02)
[2020-11-06 03:13] VITALS: BP 110/55
== END 2020-11-06 03:36 | disposition home or self-care (01) ==
LOC: ED 21:55
DX: N39.0 Urinary tract infection, site not specified (principal); J02.9 Acute pharyngitis, unspecified; R09.89 Other specified symptoms and signs involving the circulatory and respiratory systems; R91.8 Other nonspecific abnormal finding of lung field; Z20.822 Contact with and (suspected) exposure to COVID-19; Z79.899 Other long term (current) drug therapy
CPT/HCPCS: 36415; 71046; 80048; 81001; 81025; 85025; 87086; 99284; Q0162